=== PATIENT | female | born 1990 | race American Indian/Alaskan Native ===

== ENCOUNTER 2021-09-10 05:22 | Emergency (ER) | payer BC, OTHER ==
[2021-09-10 05:30] VITALS: BP 169/102
[2021-09-10 08:22] LABS: Mucus,Urine FEW /HPF
[2021-09-10 08:54] LABS: Bilirubin,Urine Negative (Negative); Blood,Urine Trace (Negative); Color,Urine Straw (Yellow); PH,Urine 7.5 (5.0-7.0); Urobilinogen,Urine < 2.0 mg/dL (<2.0)
== END 2021-09-10 11:30 | disposition left against medical advice (07) ==
LOC: ED 05:22
DX: R10.9 Unspecified abdominal pain (principal); Z53.21 Procedure and treatment not carried out due to patient leaving prior to being seen by health care provider
CPT/HCPCS: 81001